=== PATIENT | female | born 1970 | race Caucasian/White ===

== ENCOUNTER 2018-04-22 08:14 | Outpatient (CLI) | payer MEDICAID, SELFPAY ==
--- NOTE | 2018-04-22 08:58 | DI.MAMMO_ITS ---
SYMPTOMS/DIAGNOSIS: SCREENING, Z12.31 MAMMOGRAMS: Mammograms were interpreted according to the usual protocol including computer analysis with CAD system, tomosynthesis and C view imaging. Comparison is with the prior examinations. No suspicious masses or microcalcifications are seen in the right breast. There is a partially obscured nodule in the posterior central left breast seen on the craniocaudad view. This area should be further evaluated with a spot compression view. Ultrasound may be indicated at that time. IMPRESSION: Additional views of the left breast as described above. Category 0. Breast density D. MQSA ASSESSMENT OF FINDINGS: Incomplete: Needs additional imaging evaluation. Category 0. Patient will receive a letter notifying them of these results. BI-RADS category D. The breasts are extremely dense, which lowers the sensitivity of mammography.
== END 2018-04-22 08:34 ==
PROVIDERS: PCP Nurse Practitioner Women's Health; Visit Provider Nurse Practitioner Women's Health
DX: Z12.31 Encounter for screening mammogram for malignant neoplasm of breast (principal); R92.8 Other abnormal and inconclusive findings on diagnostic imaging of breast
CPT/HCPCS: 77063; 77067

== ENCOUNTER 2018-05-01 01:17 | Outpatient (CLI) | payer MEDICAID, SELFPAY ==
--- NOTE | 2018-05-01 14:46 | DI.COMBO_ITS ---
SYMPTOMS/DIAGNOSIS: F/U MAMMO, PARTIALLY OBSCURED NODULE IN THE POSTERIOR CENTRAL LEFT BREAST ADDITIONAL MAMMOGRAPHIC VIEWS AND LEFT BREAST ULTRASOUND: Additional images are interpreted according to the usual protocol including tomosynthesis and 2D imaging. Follow-up CC compression spot film of the left breast again reveals a small discrete area of nodularity in the posterior central medial portion of the left breast. At ultrasound today, no discrete mass is seen. There is echodense breast tissue. The abnormality on the initial images is not apparent on the mediolateral projection. This small nodule could well represent a cyst; however, a small neoplasm cannot be excluded and further examination with a stereotactic biopsy is recommended to rule out neoplasm. Category 4, breast density C. MQSA ASSESSMENT OF FINDINGS: Suspicious. Biopsy should be considered. Category 4. Patient will receive a letter notifying them of these results. Bi-RADS category C. The breasts are heterogeneously dense, which may obscure small masses.
== END 2018-05-01 01:37 ==
PROVIDERS: PCP Nurse Practitioner Women's Health; Visit Provider Nurse Practitioner Women's Health
DX: Z12.31 Encounter for screening mammogram for malignant neoplasm of breast (principal); R92.8 Other abnormal and inconclusive findings on diagnostic imaging of breast; N63.20 Unspecified lump in the left breast, unspecified quadrant
CPT/HCPCS: 76642; 77063; 77067

== ENCOUNTER 2019-12-01 03:11 | Outpatient (CLI) | payer MEDICAID, SELFPAY ==
[2019-12-01 15:01] LABS: Glucose 91 mg/dL (74-106); TSH (W/Ref FT4) 3.64 uIU/mL (0.36-3.74)
== END 2019-12-01 03:31 ==
PROVIDERS: PCP Nurse Practitioner Women's Health; Visit Provider Naturopath
DX: Z00.00 Encounter for general adult medical examination without abnormal findings (principal); Z13.1 Encounter for screening for diabetes mellitus; E03.9 Hypothyroidism, unspecified
CPT/HCPCS: 36415; 82947; 84443; 84481

== ENCOUNTER 2020-07-07 10:17 | Emergency (ER) | payer MEDICAID, SELFPAY ==
[2020-07-07 10:24] VITALS: BP 124/71; PULSE 65; RESP 14; TEMP 36.6; O2SAT 100
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
--- NOTE | 2020-07-07 11:00 | DI.RAD_ITS ---
EXAM: XR TIB/FIB RT CLINICAL HISTORY: fall, pain anterior tibia, calf swollen. TECHNIQUE: 2D digital imaging was performed. COMPARISON: No exams were available for comparison FINDINGS: No evidence of fracture or dislocation. No radiopaque foreign body. No osseous lesions. Talar dome unremarkable. IMPRESSION: No fracture evident. DATA REPOSITORY: RADIATION DOSE DELIVERED:
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
[2020-07-07 12:05] VITALS: BP 108/61; PULSE 54; RESP 20; TEMP 36.5; O2SAT 100
[2020-07-07 12:35] VITALS: BP 108/61; PULSE 54; RESP 20; TEMP 36.5; O2SAT 100
== END 2020-07-07 12:30 | disposition home or self-care (01) ==
PROVIDERS: Emergency Provider Student in an Organized Health Care Education/Training Program; PCP Nurse Practitioner Women's Health
DX: S86.111A Strain of other muscle(s) and tendon(s) of posterior muscle group at lower leg level, right leg, initial encounter (principal); S80.211A Abrasion, right knee, initial encounter; V19.9XXA Pedal cyclist (driver) (passenger) injured in unspecified traffic accident, initial encounter
CPT/HCPCS: 99283; 73564; 73590

== ENCOUNTER 2020-12-30 02:23 | Outpatient (CLI) | payer MEDICAID, SELFPAY | END 2020-12-30 02:24 | disposition home or self-care (01) | LOC: LBO 02:23 | PROVIDERS: PCP Nurse Practitioner Women's Health; Visit Provider Naturopath | DX: E03.9 Hypothyroidism, unspecified (principal) | CPT/HCPCS: 36415; 84443 ==

== ENCOUNTER 2021-06-02 01:46 | Outpatient (CLI) | payer MEDICAID, SELFPAY ==
[2021-06-02 12:45] LABS: Folate 10.5 ng/mL (8.6-20.0); Vitamin B12 249 pg/mL (193-986)
[2021-06-02 13:09] LABS: FREE T4 0.87 ng/dL (0.76-1.46)
[2021-06-02 17:16] LABS: T3,Free 2.6 pg/mL (2.8-5.3)
[2021-06-02 17:31] LABS: T3, Total 121 ng/dL (97-169)
[2021-06-05 05:28] LABS: Vitamin D 25 Total 32.1 ng/mL (30-100)
[2021-06-07 12:44] LABS: T3 (Triiodothyronine) Reverse 17 ng/dL (10-24)
== END 2021-06-02 01:47 | disposition home or self-care (01) ==
LOC: LBO 01:46
PROVIDERS: PCP Nurse Practitioner Women's Health; Visit Provider Acupuncturist
DX: F33.8 Other recurrent depressive disorders (principal)
CPT/HCPCS: 36415; 82306; 82607; 82746; 84439; 84443; 84480; 84481; 84482

== ENCOUNTER 2021-06-02 13:13 | Outpatient (REF) | payer MEDICAID, SELFPAY ==
--- NOTE | 2021-06-02 11:15 | PAPFT_PTH ---
PATIENT: Lesly Rose LOC: [facility] U#:[id number] AGE/SX: 51/F ROOM: RE06/02/[address]: Marii Coley MD : [id number] BED: DIS: 06/02/2021 SPEC #: [id number] RECD: 06/02/21 16:46 STATUS: JAMILA REDarron #: [id number] MATIAS: 06/02/21 11:[address]: Marii Coley DEPT: [facility] Cytology RECD BY: Annie Kingsley ENTERED: 06/02/21 16:47 SP TYPE: PAPFT OTHR DR: Kathia Henry Tissues: 1 - CX/ENDOCX FOR PAP SMEARS Procedures: PAP THIN PREP/UVM Screening HPV DNA PROBE Comments: [id number] (CHLAMYDIA/GC)
[2021-06-05 14:26] LABS: Chlamydia Result Negative (Negative); GC Result Negative (Negative)
== END 2021-06-02 13:14 | disposition home or self-care (01) ==
LOC: LBN 13:13
PROVIDERS: PCP Nurse Practitioner Women's Health; Visit Provider Obstetrics & Gynecology
DX: Z11.3 Encounter for screening for infections with a predominantly sexual mode of transmission (principal); Z12.4 Encounter for screening for malignant neoplasm of cervix; Z11.51 Encounter for screening for human papillomavirus (HPV)
CPT/HCPCS: 87491; 87591; 88142; 87624

== ENCOUNTER 2021-08-11 02:31 | Outpatient (CLI) | payer MEDICAID, SELFPAY ==
[2021-08-11 14:10] LABS: FREE T4 0.48 ng/dL (0.76-1.46); TSH 1.99 uIU/mL (0.36-3.74)
[2021-08-11 21:56] LABS: T3,Free 3.5 pg/mL (2.8-5.3)
[2021-08-11 22:11] LABS: T3, Total 167 ng/dL (97-169)
== END 2021-08-11 02:32 | disposition home or self-care (01) ==
LOC: LBO 02:31
PROVIDERS: PCP Nurse Practitioner Women's Health; Visit Provider Acupuncturist
DX: E03.9 Hypothyroidism, unspecified (principal)
CPT/HCPCS: 36415; 84439; 84443; 84480; 84481; 84482

== ENCOUNTER 2021-08-18 00:44 | Outpatient (CLI) | payer MEDICAID, SELFPAY ==
--- NOTE | 2021-08-18 12:00 | DI.MAMMO_ITS ---
Exam(s) MAMMO SCREENING EXAM: MAMMO SCREENING CLINICAL HISTORY: screening,Z12.39. TECHNIQUE: Bilateral full field digital CC and MLO mammographic images were obtained with 3D tomosyn thesis and utilizing computer aided detection (CAD). COMPARISON: Prior mammogram of 2018 was reviewed, this being the only prior mammogram in our PACS. FINDINGS: The fibroglandular tissue pattern is moderately dense. There are no new significant radiograph findings in left breast. In the right breast there is a small group of microcalcifications seen on the MLO view, posteriorly, 7 cm in from the nipple. Spot Mag 2D view recommended. In addition, on the CC view there is an asymmetric density located 6 cm in from the nipple which requ kain spot compression 3D view. This asymmetric density measures approximately 8 x 7. There is no significant architectural distortion nor skin thickening-retraction. IMPRESSION: 1. No radiographic evidence of malignancy in left breast. 2. Two findings in the right breast which require additional imaging including a spot Mag 2D view of a microcalcification group and spot compression 3D view of an asymmetric density seen posteriorly in the right breast on the CC view. 3. Also recommend breast ultrasound at that time BI-RADS Category 0 - Assessment Incomplete: Need additional imaging evaluation Breast Density - Category C - Heterogeneously dense Breast density Category C or D implies that the patient has dense breast tissue. Dense breast tissue can make it harder to find cancer on a mammogram. Dense breast tissue is also associated with an incr eased risk of breast cancer. This information about the result of the mammogram report was provided to the patient to raise their awareness. Use this report when you speak with the patient about their risks for breast cancer, which includes their family history. At that time, you may recommend additional screening tests (Ultrasoun d or MRI) as these tests may add significant information. A negative radiographic report should not delay biopsy if a dominant or clinically suspicious mass is present. Up to ten percent of cancers are not identified on mammography. A negative report may reinforce clinical impression. Adenosis and dense breasts may obscure an underlying neoplasm. False positive reports average 6 to 10%. Patient will receive a letter notifying them of these results.
== END 2021-08-18 01:04 ==
PROVIDERS: PCP Nurse Practitioner Women's Health; Visit Provider Obstetrics & Gynecology
DX: Z12.31 Encounter for screening mammogram for malignant neoplasm of breast (principal); R92.8 Other abnormal and inconclusive findings on diagnostic imaging of breast
CPT/HCPCS: 77063; 77067

== ENCOUNTER → 2021-08-23 01:39 | Outpatient (CLI) | payer MEDICAID, SELFPAY ==
--- NOTE | 2021-08-23 | DI.MAMMO_ITS ---
Exam(s) MG MAMMO SCREEN CALL BACK UNI US BREAST RT COMPLETE EXAM: MG MAMMO SCREEN CALL BACK UNI CLINICAL HISTORY: F/U MAMMO, MICROCALCIFICATIONS AND ASYMMETRIC DENSITY. TECHNIQUE: CC spot compression view with tomography. Spot magnification MLO view. COMPARISON: MG DIGITAL MAMMO VANESSA SCREEN W CAD from 07/24/2011 MG DIGITAL MAMMO DX CALL BACK UNI from 08/03/2011 MG MG mammo screening from 04/22/2018 FINDINGS: Mammography/Tomosynthesis: Masses/Architectural Distortion: None seen. Microcalcifictions: No suspicious pleomorphic-type are seen. Loosely clustered calcifications postero superior portion of the breast. Skin Thickening/Nipple Retraction: None. Right breast US: Echotexture: Normal appearance of the glandular tissue. Shadowing: No suspicious foci. Cyst: None. Solid lesions: None seen. Ductal dilation: None. IMPRESSION: Probably benign calcifications superior right breast. Six-month follow-up mammogram with magnificati on views recommended. BI-RADS Category 3 - 6 month - Probably Benign Finding: Recommend follow-up imaging in 6 months Breast Density - Category C - Heterogeneously dense Breast density category C or D implies that the patient has dense breast tissue. Dense breast tissue is very common and is not abnormal but dense breast tissue can make it harder to find cancer on a ma mmogram. Also, dense breast tissue may increase their breast cancer risk. This information about the result of the mammogram report was provided to the patient to raise their awareness. Use this report when you speak with the patient about their risks for breast cancer, which includes their family hist ory. At that time, you may recommend for more screening tests (Ultrasound or MRI) as they might be us eful based on their risk. A negative radiographic report should not delay biopsy if a dominant or clinically suspicious mass is present. Up to ten percent of cancers are not identified on mammography. A negative report may reinforce clinical impression. Adenosis and dense breasts may obscure an underlying neoplasm. False positive reports average 6 to 10%. Patient will receive a letter notifying them of these results.
== END ==
PROVIDERS: PCP Nurse Practitioner Women's Health; Visit Provider Obstetrics & Gynecology
DX: Z12.31 Encounter for screening mammogram for malignant neoplasm of breast (principal); R92.8 Other abnormal and inconclusive findings on diagnostic imaging of breast; N60.81 Other benign mammary dysplasias of right breast
CPT/HCPCS: 76642; 77063; 77067

== ENCOUNTER → 2022-03-02 00:17 | Outpatient (CLI) | payer MEDICAID, SELFPAY ==
--- NOTE | 2022-03-02 08:30 | DI.MAMMO_ITS ---
Exam(s) MAMMO DIAGNOSTIC UNI EXAM: MAMMO DIAGNOSTIC UNI- RIGHT CLINICAL HISTORY: 6mo f/u,r92.8. TECHNIQUE: Unilateral spot 2D AND 3D mammographic images were obtained with 3D tomosynthesis technClarimedix ue and utilizing computer aided detection (CAD). COMPARISON: Prior mammograms were reviewed, the most recent being August 18, 2021. Diagnostic mammogram and ultrasound of 08/23/2021 also reviewed FINDINGS: Fibroglandular tissue pattern is again noted be moderately dense. The microcalcification group described on the prior mammogram remains relatively stable benign appear ance at this time. There is SPECT previously described asymmetric density posteriorly, this finding is unchanged. In ad dition, there are no focal findings in the right breast on the complete right breast ultrasound perfo rmed 08/23/2021. Therefore this is most probably a benign finding. IMPRESSION: Stable presently benign-appearing microcalcification group in the right breast. Stable asymmetric density posteriorly in the right breast. Appropriate follow-up is to perform repeat Mag views of the microcalcification group at the time for yearly mammogram which would be in August 2022. The patient was informed of the findings and follow-up recommendations prior to leaving the [facility]. BI-RADS Category 3 - 6 month - Probably Benign Finding: Recommend follow-up mammography in 6 months Breast Density - Category C - Heterogeneously dense Breast density Category C or D implies that the patient has dense breast tissue. Dense breast tissue can make it harder to find cancer on a mammogram. Dense breast tissue is also associated with an incr eased risk of breast cancer. This information about the result of the mammogram report was provided to the patient to raise their awareness. Use this report when you speak with the patient about their risks for breast cancer, which includes their family history. At that time, you may recommend additional screening tests (Ultrasoun d or MRI) as these tests may add significant information. A negative radiographic report should not delay biopsy if a dominant or clinically suspicious mass is present. Up to ten percent of cancers are not identified on mammography. A negative report may reinforce clinical impression. Adenosis and dense breasts may obscure an underlying neoplasm. False positive reports average 6 to 10%. Patient will receive a letter notifying them of these results.
== END ==
PROVIDERS: PCP Nurse Practitioner Women's Health; Visit Provider Obstetrics & Gynecology
DX: R92.8 Other abnormal and inconclusive findings on diagnostic imaging of breast (principal)
CPT/HCPCS: 77061; 77065; G0279

== ENCOUNTER → 2023-04-02 02:08 | Outpatient (CLI) | payer MEDICAID, SELFPAY ==
--- NOTE | 2023-04-02 08:00 | DI.MAMMO_ITS ---
Exam(s) MAMMO SCREENING EXAM: MAMMO SCREENING CLINICAL HISTORY: screening,z12.31 TECHNIQUE: Bilateral full field digital CC and MLO mammographic images were obtained with 3D tomosyn thesis and utilizing computer aided detection (CAD). COMPARISON: Available for comparison. FINDINGS: Masses/Architectural Distortion: None seen. Microcalcifications: No suspicious pleomorphic-type are seen. Skin Thickening/Nipple Retraction: None. IMPRESSION: 1. No significant interval change with no specific features of malignancy noted. 2. Unless there is more urgent need, screening mammography is recommended, as per [place] [employer] guidelines. BI-RADS Category 1 - Negative Breast Density - Category C - Heterogeneously dense Breast density category C or D implies that the patient has dense breast tissue. Dense breast tissue is very common and is not abnormal but dense breast tissue can make it harder to find cancer on a ma mmogram. Also, dense breast tissue may increase their breast cancer risk. This information about the result of the mammogram report was provided to the patient to raise their awareness. Use this report when you speak with the patient about their risks for breast cancer, which includes their family hist ory. At that time, you may recommend for more screening tests (Ultrasound or MRI) as they might be us eful based on their risk. A negative radiographic report should not delay biopsy if a dominant or clinically suspicious mass is present. Up to ten percent of cancers are not identified on mammography. A negative report may reinforce clinical impression. Adenosis and dense breasts may obscure an underlying neoplasm. False positive reports average 6 to 10%. Patient will receive a letter notifying them of these results.
== END ==
PROVIDERS: PCP Nurse Practitioner Women's Health; Visit Provider Obstetrics & Gynecology
DX: Z12.31 Encounter for screening mammogram for malignant neoplasm of breast (principal)
CPT/HCPCS: 77063; 77067

== ENCOUNTER 2025-02-18 04:20 | Outpatient (CLI) | payer BC, SELFPAY ==
--- NOTE | 2025-02-18 07:30 | DI.MAMMO_ITS ---
Exam(s) MAMMO SCREENING EXAM: MAMMO SCREENING CLINICAL HISTORY: screening,Z12.31 TECHNIQUE: Bilateral full field digital CC and MLO mammographic images were obtained with 3D tomosynthesis and utilizing computer aided detection (CAD). COMPARISON: Comparison is made with prior examinations. FINDINGS: Masses/Architectural Distortion: There is a new well-circumscribed 6 mm nodule in the central retroareolar region of the left breast 2.7 cm from the nipple. This is best appreciated on the MLO view. There are no areas of architectural distortion. Microcalcifications: No suspicious pleomorphic-type are seen. Skin Thickening/Nipple Retraction: None. IMPRESSION: 1. New left breast nodule. 2. Spot compression views are requested for further evaluation. Ultrasound may be indicated at that time. BI-RADS Category 0 - Incomplete: Need additional imaging evaluation Breast Density - Category C - The breast are heterogeneously dense, which may obscure small masses. Breast density Category C or D implies that the patient has dense breast tissue. Dense breast tissue can make it harder to find cancer on a mammogram. Dense breast tissue is also associated with an increased risk of breast cancer. This information about the result of the mammogram report was provided to the patient to raise their awareness. Use this report when you speak with the patient about their risks for breast cancer, which includes their family history. At that time, you may recommend additional screening tests (Ultrasound or MRI) as these tests may add significant information. A negative radiographic report should not delay biopsy if a dominant or clinically suspicious mass is present. Up to ten percent of cancers are not identified on mammography. A negative report may reinforce clinical impression. Adenosis and dense breasts may obscure an underlying neoplasm. False positive reports average 6 to 10%. Patient will receive a letter notifying them of these results.
== END 2025-02-18 04:40 ==
LOC: DI 04:20
PROVIDERS: PCP Nurse Practitioner Women's Health; Visit Provider Obstetrics & Gynecology
DX: Z12.31 Encounter for screening mammogram for malignant neoplasm of breast (principal)
CPT/HCPCS: 77063; 77067

== ENCOUNTER 2025-03-02 00:17 | Outpatient (CLI) | payer BC, SELFPAY ==
--- NOTE | 2025-03-02 09:53 | DI.MAMMO_ITS ---
Exam(s) MG MAMMO SCREEN CALL BACK UNI US BREAST LT LIMITED EXAM: MG MAMMO SCREEN CALL BACK UNI and U/S breast LT limited CLINICAL HISTORY: NEW LT BREAST NODULE 2.7CM FROM NIPPLE R92.8 ABNL MAMMO. TECHNIQUE: Craniocaudal and mediolateral oblique Full Field Digital Mammography views of the left breast with Computer Aided Diagnosis followed by Tomosynthesis and limited left breast ultrasound. COMPARISON: Comparison is made with prior examinations. FINDINGS: Mammography/Tomosynthesis: Masses/Architectural Distortion: The well-circumscribed nodule in the retroareolar region of the left breast persists. There are no areas of architectural distortion. Microcalcifictions: No suspicious pleomorphic-type are seen. Skin Thickening/Nipple Retraction: None. Limited left breast US: Echotexture: Normal appearance of the glandular tissue. Shadowing: No suspicious foci. Cyst: At the 3 o'clock position of the left breast 1 cm from the nipple, there is a well-circumscribed anechoic avascular lesion measuring 0.4 x 0.4 x 0.4 cm. This would correspond to the mammographic abnormality. Solid lesions: None seen. Ductal dilation: None. IMPRESSION: 1. No evidence of malignancy is noted. 2. Unless there is more urgent need, follow-up screening mammography is recommended, as per [place] [employer] guidelines. 3. The findings were discussed with the patient on the date of the examination. BI-RADS Category 2 - Benign Findings Breast Density - Category C - The breast are heterogeneously dense, which may obscure small masses. Breast density Category C or D implies that the patient has dense breast tissue. Dense breast tissue can make it harder to find cancer on a mammogram. Dense breast tissue is also associated with an increased risk of breast cancer. This information about the result of the mammogram report was provided to the patient to raise their awareness. Use this report when you speak with the patient about their risks for breast cancer, which includes their family history. At that time, you may recommend additional screening tests (Ultrasound or MRI) as these tests may add significant information. A negative radiographic report should not delay biopsy if a dominant or clinically suspicious mass is present. Up to ten percent of cancers are not identified on mammography. A negative report may reinforce clinical impression. Adenosis and dense breasts may obscure an underlying neoplasm. False positive reports average 6 to 10%. Patient will receive a letter notifying them of these results.
== END 2025-03-02 00:37 ==
LOC: DI 00:17
PROVIDERS: PCP Nurse Practitioner Women's Health; Visit Provider Obstetrics & Gynecology
DX: Z12.31 Encounter for screening mammogram for malignant neoplasm of breast (principal); R92.8 Other abnormal and inconclusive findings on diagnostic imaging of breast
CPT/HCPCS: 76642; 77063; 77067